=== PATIENT | male | born 1960 | race Caucasian/White ===

== ENCOUNTER 2025-01-27 19:33 | Emergency (ER) | payer MEDICARE ==
[2025-01-27] MEDS: Bacitracin Oint 1 GM U/D Packet TOP ONE (20:10)
== END 2025-01-27 21:32 | disposition home or self-care (01) ==
LOC: JP.ED 19:33
DX: S61.213A Laceration without foreign body of left middle finger without damage to nail, initial encounter (principal); I10 Essential (primary) hypertension; E78.00 Pure hypercholesterolemia, unspecified; Z88.0 Allergy status to penicillin; Z88.8 Allergy status to other drugs, medicaments and biological substances; Z79.82 Long term (current) use of aspirin; Z79.899 Other long term (current) drug therapy; W26.9XXA Contact with unspecified sharp object(s), initial encounter
CPT/HCPCS: 12002; 99282; J2003

== ENCOUNTER 2025-01-30 06:32 | Day surgery (SDC) | payer MEDICARE ==
[2025-01-30] MEDS: Lactated Ringers 1,000 ML IV SCH (07:06)
[2025-01-30] MEDS ORDERED: fentaNYL 100 MCG/2 ML SDV ONE (07:16)
[2025-01-30] MEDS ORDERED: Midazolam 1 MG/ML 2 ML SDV ONE (07:16)
[2025-01-30] MEDS ORDERED: Propofol 200 MG/20 ML SDV ONE ×2 (07:16→08:39)
[2025-01-30] MEDS: Clindamycin in 0.9 % Sod Chlor 900 MG in Premix Bag 1 BAG IV ONE (07:40)
[2025-01-30] MEDS: Acetaminophen/HYDROcodone 325-5 MG Tab PO ONE (10:37)
== END 2025-01-30 10:37 | disposition home or self-care (01) ==
LOC: JP.SDS 06:32
PROVIDERS: ATTEND Specialist
DX: S66.323A Laceration of extensor muscle, fascia and tendon of left middle finger at wrist and hand level, initial encounter (principal); K21.9 Gastro-esophageal reflux disease without esophagitis; I10 Essential (primary) hypertension; E66.812 Obesity, class 2; Z68.41 Body mass index [BMI] 40.0-44.9, adult; Z88.0 Allergy status to penicillin; Z88.8 Allergy status to other drugs, medicaments and biological substances; Z79.82 Long term (current) use of aspirin; Z79.899 Other long term (current) drug therapy; W26.0XXA Contact with knife, initial encounter
CPT/HCPCS: 26418; J2250; J2704; J3010; J7120; J0665; J0737